=== PATIENT | female | born 1945 | race Caucasian/White ===

== ENCOUNTER 2022-10-15 14:10 | Outpatient (CLI) | payer MEDICARE, OTHER ==
[~2022-10-15] VITALS: Ht 165.1 cm; Wt 66.7 kg
[2022-10-15 14:32] LABS: TOTAL HEMOGLOBIN 14.6 G/dl (12.0-16.0)
[2022-10-15] MEDS ORDERED: albuterol 2.5 MG/3 ML nebule NEB PRN (15:10)
== END 2022-10-15 23:59 | disposition home or self-care (01) ==
LOC: RT 14:10
PROVIDERS: ATTEND Internal Medicine Pulmonary Disease
DX: J44.9 Chronic obstructive pulmonary disease, unspecified (principal); Z79.899 Other long term (current) drug therapy; Z87.891 Personal history of nicotine dependence
CPT/HCPCS: 85018; 94060; 94727; 94729; 94760